=== PATIENT | male | born 1995 | race Caucasian/White ===

== ENCOUNTER 2017-11-14 02:15 | Emergency (ER) | payer SELFPAY ==
[~2017-11-14] VITALS: Ht 175.3 cm; Wt 90.7 kg
[2017-11-14 02:15] VITALS: BP_SYST 134
[2017-11-14 02:31] VITALS: BP_SYST 129
== END 2017-11-14 02:31 ==
LOC: SED 02:15
DX: Z02.89 Encounter for other administrative examinations (principal); V89.2XXA Person injured in unspecified motor-vehicle accident, traffic, initial encounter; Y93.89 Activity, other specified; Y92.410 Unspecified street and highway as the place of occurrence of the external cause; Y99.8 Other external cause status
CPT/HCPCS: 99283